=== PATIENT | female | born 1995 | race Caucasian/White ===

== ENCOUNTER 2018-08-12 11:28 | Day surgery (SDC) | payer OTHER ==
[~2018-08-12] VITALS: Ht 152.4 cm; Wt 56.9 kg
[2018-08-12 12:11] VITALS: Ht 152.4 cm; Wt 56.9 kg
[2018-08-12] MEDS ORDERED: LYR75 PO (12:22)
[2018-08-12] MEDS ORDERED: ZERTEC (12:22)
[2018-08-12] MEDS ORDERED: PANT20TA3 PO (12:22)
[2018-08-12] MEDS ORDERED: CYCL5TAB PO (12:22)
[2018-08-12] MEDS ORDERED: NORT50CA PO (12:22)
[2018-08-12] MEDS ORDERED: FLUT9.9S NASAL (12:22)
[2018-08-12] MEDS ORDERED: NORG1TAB6 PO (12:22)
[2018-08-12 12:49] VITALS: BP 101/86; PULSE 20; RESP 20
[2018-08-12] MEDS ORDERED: LIDOCAINE 2% (SDV) 5 ML INJ ONE (13:11)
[2018-08-12] MEDS ORDERED: PROPOFOL 40 ML ONE (13:11)
--- NOTE | 2018-08-12 13:20 | PREAC ---
Date/Time of Note Date/Time of Note DATE: 08/12/18 TIME: 13: Anesthesia Eval and Record Evaluation Time Pre-Procedure Interview DATE: 08/12/18 TIME: 13:19 Age 22 Sex female NPO: 8 hrs Preoperative diagnosis Abdominal pain Planned procedure EGD Past Medical History Past Medical History: None Surgery & Anesthesia Issues No known issue Meds Anticoagulation: No Beta Joaquina within 24 hr: No Reason Beta Joaquina not given: Pt. not on B-Joaquina Reported Medications Cyclobenzaprine Hcl* (Cyclobenzaprine Hcl*) 5 Mg Tablet, 5 MG PO DAILY, #60 TAB 08/12/18 Fluticasone Propionate (Flonase Allergy Relief) 9.9 Ml [place].susp, 1 SPRAY NASAL DAILY, #1 BOTTLE TO EACH NOSTRIL 08/12/18 Pantoprazole* (Pantoprazole*) 20 Mg Tablet.dr, 20 MG PO DAILY, TAB 08/12/18 [Zertec] No Conflict Check, 25 08/12/18 Norgestimate-Ethinyl Estradiol (Tri-Linyah) 0.035-0.18 Mg Tablet, 1 TAB PO DAILY, TAB 08/12/18 Pregabalin* (Lyrica*) 75 Mg Capsule, 75 MG PO BID, CAP 08/12/18 Nortriptyline Hcl* (Nortriptyline Hcl*) 50 Mg Capsule, 50 MG PO DAILY, TAB 08/12/18 Meds reviewed: Yes Allergies Coded Allergies: No Known Allergy (Unverified , 08/12/18) Allergies Reviewed: Yes Labs/Studies Labs Reviewed: Reviewed by anesthesiologist test: Negative Studies: ECG Pre-procedure Exam Last vitals Vital Signs Date Temp Pulse Resp B/P (MAP) Pulse Ox O2 O2 Flow FiO2 Time Delivery Rate 08/12/18 98.3 20 20 101/86 100 12:49 (91) Airway: Adequate mouth opening, Adequate thyromental dist Mallampati: Mallampati II Teeth: Normal Lung: Normal Heart: Normal ASA Physical Status ASA physical status: 1 Emergency: None Pre-operative Attestations Prior to commencing anesthesia and surgery, the patient was re-evaluated, there was verification of: *The patient's identity *The results of appropriate recent lab work and preoperative vital signs *The above evaluation not changing prior to induction *Anesthetic plan, risk benefits, alternative and complications discussed with patient/family; questions answered; patient/family understands, accepts and wishes to proceed. HEMANT AHN MD Aug 12, 2018 13:20
--- NOTE | 2018-08-12 13:26 | PAC ---
Date/Time of Note Date/Time of Note DATE: 08/12/18 TIME: 13:26 Post-Anesthesia Notes Post-Anesthesia Note Last documented vital signs Vital Signs Date Temp Pulse Resp B/P (MAP) Pulse Ox O2 O2 Flow FiO2 Time Delivery Rate 08/12/18 98.3 20 20 101/86 100 12:49 (91) Activity: WNL Respiratory function: WNL Cardiovascular function: WNL Mental status: Baseline Pain reasonably controlled: Yes Hydration appropriate: Yes Nausea/Vomiting absent: Yes Comments BP:105, P:76, Spo2:100%, T:98,8 HEMANT AHN MD Aug 12, 2018 13:26
--- NOTE | 2018-08-12 13:28 | HPN ---
Date/Time of Note Date/Time of Note DATE: 08/12/18 TIME: 13:28 Interval H&P Admission Note Pt. seen H&P reviewed: No system changes NAKUL MONTEZ Aug 12, 2018 13:28
[2018-08-12] MEDS ORDERED: METOCLOPRAMIDE 10 MG INJ IV PRN (13:30)
[2018-08-12] MEDS ORDERED: FENTAnyl 50 MCG/ML VIAL IV PRN (13:30)
[2018-08-12] MEDS ORDERED: ONDANSETRON 4 MG INJ IV PRN (13:30)
[2018-08-12 14:04] VITALS: BP 117/66; RESP 18
== END 2018-08-12 14:08 | disposition home or self-care (01) ==
LOC: GIL 11:28
PROVIDERS: ATTEND Internal Medicine Gastroenterology
DX: K29.30 Chronic superficial gastritis without bleeding (principal)
CPT/HCPCS: 43239; 84703; 88305; 88312; Z7610